=== PATIENT | female | born 1980 | race African-American/Black ===

== ENCOUNTER 2016-12-18 21:37 | Emergency (ER) | payer BC ==
[2016-12-18 21:51] VITALS: BP 129/79; PULSE 75; TEMP 98.3; BMI 41.8
[2016-12-19] MEDS ORDERED: METOCLOPRAMIDE HCL INJECTION 10 MG/2 ML VIAL IVPB ONE (01:10)
[2016-12-19] MEDS ORDERED: KETOROLAC TROMETHAMINE 30 MG/1 ML VIAL IVPUSH ONE (01:10)
[2016-12-19] MEDS ORDERED: SODIUM CHLORIDE 1,000 ML IV STA (01:10)
[2016-12-19] MEDS ORDERED: KETOROLAC TROMETHAMINE 30 MG/1 ML VIAL ONE (01:16)
[2016-12-19] MEDS ORDERED: METOCLOPRAMIDE HCL INJECTION 10 MG/2 ML VIAL ONE (01:16)
--- NOTE | 2016-12-19 01:56 | PDOC ---
[id number] No Limitations - History of Present Illness Initial Comments: 12/19/16 01:58 The patient is a 36 year old female, with a significant past medical history of thyroid nodules and migraines, who presents to the emergency department with sore throat. She describes her sore throat as ranging from mild to moderate, with radiation to her right ear and right jaw. She states that she has been around a person who was diagnosed with strep throat. She notes that she was at [facility] today and was checked for strep throat, which was negative. The patient denies chest pain, shortness of breath, headache and dizziness. Denies fever, chills, nausea, vomit, diarrhea and constipation. Denies dysuria, frequency, urgency and hematuria. Allergies: Penicillin Past surgical history: None reported Social history: No alcohol, tobacco or drug use reported PMD - Dr. Isidro Helm <Maximino Carreno - Last Filed: 12/19/16 01:58> <Joan Patel - Last Filed: 12/19/16 02:46> - General History Source: Patient Exam Limitations: No Limitations <Elijah Canales - Last Filed: 12/23/16 08:49> - General Chief Complaint: Sore Throat Stated Complaint: PAIN(THROAT) Time Seen by Provider: 12/19/16 00:56 Past History <Maximino Carreno - Last Filed: 12/19/16 01:58> <Joan Patel - Last Filed: 12/19/16 02:46> - Past Medical History Other medical history: migraines - Psycho/Social/Smoking Cessation Hx Suicidal Ideation: No Smoking History: Never smoked <Elijah Canales - Last Filed: 12/23/16 08:49> - Past Medical History Allergies/Adverse Reactions: Allergies Allergy/AdvReac Type Severity Reaction Status Date / Time Penicillins Allergy Verified 12/18/16 21:51 Home Medications: Ambulatory Orders Tramadol HCl [Ultram -] 50 mg PO Q6H #20 tablet MDD 4 12/19/16 Review of Systems - Review of Systems Able to Perform ROS?: Yes Comments:: 12/19/16 01:58 GENERAL/CONSTITUTIONAL: No fever or chills. No weakness. HEAD, EYES, EARS, NOSE AND THROAT: +Sore throat and right ear pain. No change in vision. No discharge CARDIOVASCULAR: No chest pain or shortness of breath RESPIRATORY: No cough, wheezing, or hemoptysis. GASTROINTESTINAL: No nausea, vomiting, diarrhea or constipation. GENITOURINARY: No dysuria, frequency, or change in urination. MUSCULOSKELETAL: No joint or muscle swelling or pain. No neck or back pain. SKIN: No rash NEUROLOGIC: No headache, vertigo, loss of consciousness, or change in strength/ sensation. ENDOCRINE: No increased thirst. No abnormal weight change HEMATOLOGIC/LYMPHATIC: No anemia, easy bleeding, or history of blood clots. ALLERGIC/IMMUNOLOGIC: No hives or skin allergy. <Maximino Carreno - Last Filed: 12/19/16 01:58> *Physical Exam - Vital Signs Last Vital Signs Temp Pulse Resp BP Pulse Ox 98.3 F 75 18 129/79 99 12/18/16 21:45 12/18/16 21:45 12/18/16 21:45 12/18/16 21:45 12/18/16 21:45 - Physical Exam Comments: 12/19/16 01:59 GENERAL: Awake, alert, and fully oriented, in no acute distress HEAD: No signs of trauma, normocephalic, atraumatic EYES: PERRLA, EOMI, sclera anicteric, conjunctiva clear ENT: Auricles normal inspection, hearing grossly normal, nares patent, oropharynx clear without exudates. Moist mucosa. Mild erythematous TM in right ear NECK: Normal ROM, supple, no JVD, or masses. Enlarged thyroid, tender to palpation. LUNGS: No distress, speaks full sentences, clear to auscultation bilaterally HEART: Regular rate and rhythm, normal S1 and S2, no murmurs, rubs or gallops, peripheral pulses normal and equal bilaterally. ABDOMEN: Soft, nontender, normoactive bowel sounds. No guarding, no rebound. No masses EXTREMITIES: Normal inspection, Normal range of motion, no edema. No clubbing or cyanosis. NEUROLOGICAL: Cranial nerves II through XII grossly intact. Normal speech, normal gait, no focal sensorimotor deficits SKIN: Warm, Dry, normal turgor, no rashes or lesions noted. <Maximino Carreno - Last Filed: 12/19/16 01:58> - Vital Signs Last Vital Signs Temp Pulse Resp BP Pulse Ox 98.3 F 75 18 129/79 99 12/18/16 21:45 12/18/16 21:45 12/18/16 21:45 12/18/16 21:45 12/18/16 21:45 <PromiseraulitoJoan - Last Filed: 12/19/16 02:46> - Vital Signs Last Vital Signs Temp Pulse Resp BP Pulse Ox 98.3 F 75 18 129/79 99 12/18/16 21:45 12/18/16 21:45 12/18/16 21:45 12/18/16 21:45 12/18/16 21:45 <Elijah Canales - Last Filed: 12/23/16 08:49> ED Treatment Course - LABORATORY CBC & Chemistry Diagram: 12/19/16 01:35 - Medications Given in the ED: ED Medications Discontinued Medications Generic Name Dose Route Start Last Admin Trade Name Freq PRN Reason Stop Dose Admin Ketorolac Tromethamine 30 mg 12/19/16 01:10 12/19/16 01:15 Toradol Injection - IVPUSH 12/19/16 01:11 30 mg ONCE ONE Administration Metoclopramide HCl 10 mg 12/19/16 01:10 12/19/16 01:15 Reglan Injection - IVPB 12/19/16 01:11 10 mg ONCE ONE Administration <Maximino Carreno - Last Filed: 12/19/16 01:58> - LABORATORY CBC & Chemistry Diagram: 12/19/16 01:35 - ADDITIONAL ORDERS Additional order review: Laboratory Results 12/19/16 01:35 Sodium 141 Potassium 3.8 Chloride 103 Carbon Dioxide 27 Anion Gap 11 BUN 9 Creatinine 0.6 Creat Clearance w eGFR > 60 Random Glucose 89 Calcium 8.8 Total Bilirubin 0.4 AST 13 L ALT 16 Alkaline Phosphatase 51 C-Reactive Protein < 0.3 Total Protein 7.2 Albumin 3.9 - RADIOLOGY Radiograph Interpretation: 12/19/16 02:46 EXAM: SOFT TISSUE NECK AND HEAD US Reviewed by Imaging applications support engineer: IMPRESSION: No sonographic evidence of acute thyroiditis. Bilateral thyroid heterogeneously hypoechoic nodules without intrinsic vascularity largest in right thyroid lower pole measuring 2..5 x 1.2 x 1.5 cm. Large nodule in left lobe is in lower pole measuring 1.1 x 0.6 x 1.2 cm. - Medications Given in the ED: ED Medications Discontinued Medications Generic Name Dose Route Start Last Admin Trade Name Adelaide PRN Reason Stop Dose Admin Sodium Chloride 1,000 mls @ 1,000 mls/hr 12/19/16 01:10 12/19/16 01:15 Normal Saline - IV 12/19/16 02:09 1,000 mls/hr ASDIR STA Administration Ketorolac Tromethamine 30 mg 12/19/16 01:10 12/19/16 01:15 Toradol Injection - IVPUSH 12/19/16 01:11 30 mg ONCE ONE Administration Metoclopramide HCl 10 mg 12/19/16 01:10 12/19/16 01:15 Reglan Injection - IVPB 12/19/16 01:11 10 mg ONCE ONE Administration <Joan Patel - Last Filed: 12/19/16 02:46> - LABORATORY CBC & Chemistry Diagram: 12/19/16 02:41 12/19/16 01:35 - RADIOLOGY Radiology Studies Ordered: Category Date Time Status SOFT TISSUE NECK AND HEAD US [US] Stat Ultrasound 12/19/16 01:13 Taken <Elijah Canales - Last Filed: 12/23/16 08:49> Medical Decision Making - Medical Decision Making 12/19/16 01:43 A portion of this note was documented by scribe services under my direction. I have reviewed the details of the note, within reason, and agree with the documentation with the following case summary and management plan written by me. Patient treated in the ED. Nursing notes are reviewed and incorporated into the medical decision-making. Vital signs reviewed. Peripheral IV access obtained by the nurse, laboratory studies are drawn and sent, reviewed and interpreted by myself. Vital Signs Temp Pulse Resp BP Pulse Ox 98.3 F 75 18 129/79 99 12/18/16 21:45 12/18/16 21:45 12/18/16 21:45 12/18/16 21:45 12/18/16 21:45 36-year-old female with past medical history of thyroid nodules presents with throat pain. Patient reports that last week she has gained approximately 15 pounds. She been feeling lately fatigue and tired. She noted that yesterday, she developed pain around her thyroid and in her throat and right earache and thought she had an infection. 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 She went to urgent care today and swabbed her throat and had a negative rapid strep test. Patient was then sent to the ER to rule out thyroiditis. Patient denies any fevers or chills. Reports right ear pain states that she was diagnosed with thyroid nodule several months ago but has not had any biopsies. Patient's right ear has some mild erythema potentially consistent with otitis media. However, patient does have tenderness overlying the thyroid. We'll need to rule out thyroiditis. We'll obtain labs including cultures, ESR, CRP, TSH, free T3, free T4 an ultrasound over the thyroid. Patient is ready following [facility] Helm. We'll discuss case with Dr. Helm once results return for disposition. <Elijah Canales - Last Filed: 12/23/16 08:49> *DC/Admit/Observation/Transfer - Attestations Scribe Attestion: 12/19/16 01:59 Documentation prepared by Maximino Carreno, acting as medical transcriptionist for Elijah Canales MD, <Maximino Carreno - Last Filed: 12/19/16 01:58> <Joan Patel - Last Filed: 12/19/16 02:46> <Elijah Canales - Last Filed: 12/23/16 08:49> Diagnosis at time of Disposition: Throat pain - Discharge Dispostion Disposition: HOME Condition at time of disposition: Stable - Prescriptions Prescriptions: Tramadol HCl [Ultram -] 50 mg PO Q6H #20 tablet MDD 4 - Referrals Referrals: Isidro Helm MD [Primary Care Provider] - Nishant Campoverde MD [Staff Physician] - - Patient Instructions Printed Discharge Instructions: Sore Throat - Post Discharge Activity Work/School Note: Back to Work
[2016-12-19 02:17] LABS: ALBUMIN 3.9 g/dl (3.4-5.0); ALK PHOS 51 U/L (45-117); ANION GAP 11 (8-16); BILIRUBIN,TOTAL 0.4 mg/dL (0.2-1.0); C-REACTIVE PROTEIN < 0.3 MG/DL (0.00-0.3); CALCIUM 8.8 mg/dL (8.5-10.1); CO2 27 mmol/L (21-32); COCKROFT - GAULT 236.6825; CREATININE 0.6 mg/dL (0.55-1.02); GLUCOSE,RANDOM 89 mg/dL (74-106); SGOT/AST 13 U/L (15-37); SGPT/ALT 16 U/L (12-78); TOT PROT 7.2 g/dl (6.4-8.2)
[2016-12-19 03:08] LABS: BASOPHIL 0.7 % (0-2.0); EOSINOPHIL 2.1 % (0-4.5); MCH 32.8 pg (25.7-33.7); MCHC 33.1 g/dl (32.0-36.0); MEAN CELL VOLUME 99.1 fl (80-96); MEAN PLT VOLUME 8.6 fl (7.5-11.1); NEUTROPHILS 52.3 % (42.8-82.8); PLATELET COUNT 240 K/MM3 (134-434); RDW 13.1 % (11.6-15.6); WHITE BLOOD COUNT 6.3 K/mm3 (4.0-10.0)
[2016-12-19 03:38] LABS: THYROID STIMULATING HORMONE 3.23 uIU/ml (0.358-3.74)
[2016-12-19 04:16] LABS: ERYTHROCYTE SEDIMENTATION RATE 3 mm/hr (0-20)
[2016-12-19] MEDS ORDERED: traMADol HCL 50 MG TABLET PO ONE (04:41)
[2016-12-19] MEDS ORDERED: traMADol HCL 50 MG TABLET ONE (04:43)
--- NOTE | 2016-12-19 04:45 | PDOC ---
*Physical Exam - Vital Signs Last Vital Signs Temp Pulse Resp BP Pulse Ox 98.3 F 75 18 129/79 99 12/18/16 21:45 12/18/16 21:45 12/18/16 21:45 12/18/16 21:45 12/18/16 21:45 ED Treatment Course - LABORATORY CBC & Chemistry Diagram: 12/19/16 02:41 12/19/16 01:35 - ADDITIONAL ORDERS Additional order review: Laboratory Results 12/19/16 01:35 Sodium 141 Potassium 3.8 Chloride 103 Carbon Dioxide 27 Anion Gap 11 BUN 9 Creatinine 0.6 Creat Clearance w eGFR > 60 Random Glucose 89 Calcium 8.8 Total Bilirubin 0.4 AST 13 L ALT 16 Alkaline Phosphatase 51 C-Reactive Protein < 0.3 Total Protein 7.2 Albumin 3.9 TSH 3.23 Free T4 1.10 12/19/16 02:41 RBC 3.96 MCV 99.1 H MCHC 33.1 RDW 13.1 MPV 8.6 Neutrophils % 52.3 Lymphocytes % 34.1 Monocytes % 10.8 H Eosinophils % 2.1 Basophils % 0.7 - Medications Given in the ED: ED Medications Discontinued Medications Generic Name Dose Route Start Last Admin Trade Name Freq PRN Reason Stop Dose Admin Sodium Chloride 1,000 mls @ 1,000 mls/hr 12/19/16 01:10 12/19/16 01:15 Normal Saline - IV 12/19/16 02:09 1,000 mls/hr ASDIR STA Administration Ketorolac Tromethamine 30 mg 12/19/16 01:10 12/19/16 01:15 Toradol Injection - IVPUSH 12/19/16 01:11 30 mg ONCE ONE Administration Metoclopramide HCl 10 mg 12/19/16 01:10 12/19/16 01:15 Reglan Injection - IVPB 12/19/16 01:11 10 mg ONCE ONE Administration Medical Decision Making - Medical Decision Making 12/19/16 04:43 Dr. Lozano: The scribe's documentation has been prepared under my direction and personally reviewed by me in its entirery. I confirm that the note above accurately reflects all work, treatment, procedures, and medical decision making performed by me. US and lab work return to be unremarkable. Pt airway is patent. No stridor or drooling. Pt to follow up with pcp. and ENT. *DC/Admit/Observation/Transfer Diagnosis at time of Disposition: Throat pain - Discharge Dispostion Disposition: HOME Condition at time of disposition: Stable Admit: No - Referrals Referrals: Isidro Helm MD [Primary Care Provider] - Nishant Campoverde MD [Staff Physician] - - Patient Instructions Printed Discharge Instructions: Sore Throat - Post Discharge Activity Work/School Note: Back to Work
== END 2016-12-19 05:10 | disposition home or self-care (01) ==
LOC: JER 21:37
PROC: 3E0333Z Introduction of Anti-inflammatory into Peripheral Vein, Percutaneous Approach (ICD-10-PCS; principal; 2016-12-18)
PROC: 3E033GC Introduction of Other Therapeutic Substance into Peripheral Vein, Percutaneous Approach (ICD-10-PCS; 2016-12-18)
PROC: 3E0337Z Introduction of Electrolytic and Water Balance Substance into Peripheral Vein, Percutaneous Approach (ICD-10-PCS; 2016-12-18)
DX: J02.9 Acute pharyngitis, unspecified (principal)
CPT/HCPCS: 36415; 76536-TC; 80053; 84439; 84443; 84481; 85025; 85651; 86140; 87040; 99282-25

== ENCOUNTER 2017-07-07 00:52 | Emergency (ER) | payer OTHER, BC ==
[2017-07-07] MEDS ORDERED: IBUPROFEN 600 MG TABLET (FP) PO ONE ×2 (01:04→01:47)
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
[2017-07-07 01:09] VITALS: BP 139/94; PULSE 106; TEMP 98.6; BMI 40.4
== END 2017-07-07 05:32 | disposition home or self-care (01) ==
LOC: JER 00:52
DX: S00.531A Contusion of lip, initial encounter (principal); S80.02XA Contusion of left knee, initial encounter; V49.49XA Driver injured in collision with other motor vehicles in traffic accident, initial encounter; W22.11XA Striking against or struck by driver side automobile airbag, initial encounter; Y92.488 Other paved roadways as the place of occurrence of the external cause; Y93.89 Activity, other specified; E06.3 Autoimmune thyroiditis
CPT/HCPCS: 99281-25